=== PATIENT | female | born 1950 | race Caucasian/White ===

== ENCOUNTER 2017-10-11 07:50 | Emergency (ER) | payer MEDICARE, SELFPAY ==
[2017-10-11 07:52] VITALS: BP 143/110; PULSE 101; RESP 17; TEMP 36.7; O2SAT 97; BMI 32.3
[2017-10-11 08:15] LABS: Bacteria 0 SEEN /hpf (None Seen); Mucous, Urine 0 SEEN /hpf (<or=2+); Squamous Epithelial Cells - UA 0 SEEN /hpf (5-10); White Blood Cells 0 SEEN /hpf (0-5)
[2017-10-11 08:20] LABS: Color, Urine Red (Yellow); Glucose, Dipstick Normal (Normal); Ketone-Dipstick Negative (Negative); Leukocyte Esterase-Dipstick 100 /ul (Negative); Nitrite-Dipstick Negative (Negative); Occult Blood-Urine 250 /ul (Negative); Protein-Dipstick 100 mg/dl (Negative); Urine Bilirubin Dipstick Negative (Negative); Urine Clarity Cloudy (Clear); Urine Urobilinogen Normal (Normal); Urine pH 6.5 (5.0 - 8.0)
[2017-10-11 08:39] LABS: Red Blood Cells-Urine > 100 SEEN /hpf (0-5)
--- NOTE | 2017-10-11 08:46 | ED.VISSUMM ---
- ER Visit Summary Date of Service: 10/11/17 Chief Complaint: Blood in urine History of Present Illness: The patient is a [address] Mckinney and Dr. Mendoza. She is on Coumadin for chronic atrial fibrillation and mechanical mitral valve replacement. She reports that she began having hematuria yesterday. She denies any dysuria or frequency. She feels as though she is emptying her bladder well. She denies any abdominal or back pain. No fever or chills. Family does report that she has had minimal bleeding from her nose intermittently for the past couple of weeks. The most recent episode was this morning when she wiped her nose and there was a small amount of blood. No bleeding otherwise. Physical Examination: Vitals: Stable. Afebrile. General: Well-nourished and well-developed. Head: Normocephalic atraumatic. Nose: No active bleeding. Mild erosion to the anterior nasal septum bilaterally. Neck: Supple, no lymphadenopathy. No JVD. Nontender. Cardiovascular: Irregular rhythm with mechanical valve click. Respiratory: No respiratory distress. Clear to auscultation bilaterally. Abdominal: Soft, nontender, nondistended, normal bowel sounds. No guarding, rebound, or peritoneal signs. Back: Nontender. Extremities: Nontender, no edema. Skin: Normal color, no rash. Neurologic: Alert and oriented ?3. Cranial nerves II through XII are intact. Normal strength and sensation. Psych: Normal affect. Test Results: Urinalysis shows greater than 100 and blood cells. There is no evidence of infection. CBC is marked for an H&H 11.8 and 35.4, segmented neutrophils 72, lymphocytes 17. Chem-7 is more for glucose 154 and BUN of 24. INR 7.7. Emergency Department Course and Treatment: Patient is resting comfortably without complaint. She was given 10 mg of vitamin K p.o. Treatment Plan: The patient was discussed with Dr. Moraes. She is instructed to hold her Coumadin for the next 2 days and get her INR checked again. Her dosing will then be adjusted based on this result. Return to the emergency department for any worsening bleeding, trauma, or other concerns. Disposition: To home in improved and stable condition. Impression: 1. Supra therapeutic INR on Coumadin. 2. Mechanical heart valve. 3. Atrial fibrillation. 4. Hematuria. This note was generated with Dragon dictation software. It may contain incorrect words, spelling, and punctuation that were not noted in review of the chart prior to signing ED Disposition - Plan for ED Patient: Chief Complaint: Complaint Instructions: ED Hematuria Referrals: Musa Beckwith MD [Primary Care Provider] - 2 Days Additional Instructions: Have your Coumadin level checked again on Friday. Do not take your Coumadin again until contacted by Dr. Esquivel's office.
[2017-10-11 09:00] LABS: Absolute Lymphocyte Count 1.47 X10^3/ul (0.83-4.51); Absolute Neutrophil Count 6.1 X10^3/uL (2.0-7.7); Basophil# 0.01 X10^3/uL; Basophil% 0.1 % (0-1); Eosinophil# 0.06 X10^3/uL; Eosinophils% 0.7 % (0-5); Hematocrit 35.4 % (37-47); Hemoglobin 11.8 g/dl (12.0-15.0); Lymphocyte # 1.47 X10^3/ul (4.0); Lymphocyte % 17.3 % (19-41); Mean Corp Hgb Conc 33.3 g/gl (32-36); Mean Corpuscular Hgb 31.1 pg (27.0-32.0); Mean Corpuscular Volume 93.4 fL (81-99); Mean Platelet Vol. 11.7 fl (6.2-12.0); Monocyte# 0.82 X10^3/uL; Monocyte% 9.7 % (0-10); Neutrophil # 6.11 X10^3/uL (2.7-7.7); POSITIVE COUNT NO; POSITIVE DIFFERENTIAL NO; POSITIVE MORPHOLOGY NO; Platelet Count 207 K/mm3 (150-450); RBC Distribution Width CV 12.6 % (11.6-14.6); Red Blood Count 3.79 M/mm3 (4.2-5.4); White Blood Count 8.5 K/mm3 (4.4-11.0)
[2017-10-11 09:19] LABS: Prothrombin Time (Protime)PT. 65.8 SECONDS (11.7-14.9)
[2017-10-11 09:22] LABS: Anion Gap 5 (5-15); BUN 24 mg/dL (7-18); BUN/Creat Ratio 24.9 RATIO (10-20); Calcium,Total 8.9 mg/dL (8.5-10.1); Chloride 104 mmol/L (98-107); Creatinine, Serum 0.96 mg/dL (0.55-1.02); EST Glomerular Filtration Rate 62 mL/min (>60); Est Glom Filt Rate - Afr Amer 75 mL/min (>60); Estimated Creatinine Clearance 48.33 ml/min; Glucose 154 mg/dL (74-106); Potassium 3.8 mmol/L (3.5-5.1); Sodium Level 140 mmol/L (136-145)
[2017-10-11 09:31] LABS: International Normalized Ratio 7.7
--- NOTE | 2017-10-11 09:34 | ED.RN ---
PT 65.8 AND INR 7.[address] CALL[address] LAB. DR PAT AWARE
[2017-10-11 11:07] VITALS: BP 137/88; PULSE 87; RESP 16; O2SAT 97
== END 2017-10-11 11:09 | disposition home or self-care (01) ==
PROVIDERS: Emergency Provider Emergency Medicine; Family Provider Family Medicine; PCP Family Medicine
DX: R79.1 Abnormal coagulation profile (principal); I48.91 Unspecified atrial fibrillation; R31.9 Hematuria, unspecified; I10 Essential (primary) hypertension; F03.90 Unspecified dementia, unspecified severity, without behavioral disturbance, psychotic disturbance, mood disturbance, and anxiety; R05 Cough; Z79.01 Long term (current) use of anticoagulants; Z79.899 Other long term (current) drug therapy; Z95.2 Presence of prosthetic heart valve
CPT/HCPCS: 80048; 81001; 85025; 85610; 99285; A4216

== ENCOUNTER → 2018-10-26 09:30 | Outpatient (CLI) | payer MEDICARE, SELFPAY ==
[2018-10-05 10:22] VITALS: BMI 34.5
--- NOTE | 2018-10-26 09:33 | ECHOD_ITS ---
Version 2 Reason For Study: VAVLE REPL Procedure This was a 2D Doppler, Color Flow transthoracic echocardiogram. The study was technically difficult. Exam performed in department. Left Ventricle Normal LV size. Left ventricular systolic function is normal. The estimated ejection fraction is 55 %. No regional wall motion abnormalities noted. Right Ventricle Normal RV size. Normal systolic function. Atria The left atrium is severely enlarged. Normal right atrium. Mitral Valve Peak transmitral valve gradient 14 mmHg. Mean transmitral valve gradient 4 mmHg. Stable appearing mechanical mitral valve apparatus. Tricuspid Valve Normal tricuspid valve. Mild tricuspid valve insufficiency. Pulmonary artery systolic pressure is 34 mmHg. Aortic Valve Trisinus/trileaflet aortic valve. Peak aortic valve gradient 36 mmHg. Mean aortic valve gradient 21 mmHg. Mild to moderate aortic stenosis. Calculated aortic valve area (continuity equation) is 1.1 cm2. Mild (1+) eccentric aortic valve insufficiency. Pulmonic Valve Normal pulmonic valve. Great Vessels Normal aortic root. The pulmonary artery is normal size. Normal inferior vena cava. Pericardium/Pleural No pericardial effusion. MMode/2D Measurements & Calculations LVIDd: 4.5 cm IVSd: 1.1 cm LVOT diam: 2.2 cm LVIDs: 3.3 cm LVPWd: 1.1 cm LVOT area: 3.9 cm2 RVDd: 3.7 cm FS: 26.6 % Ao root diam: 3.0 cm LAV(MOD-bp): 110.6 ml Aortic Valve Planimetry: 1.2 cm2 LAV(MOD-bp) Indexed: 57.9 ml/m2 LAV(MOD-sp2): 115.6 ml LAV(MOD-sp4): 99.1 ml LA dimension(2D): 4.2 cm LA A4 area: 30.2 cm2 RA A4 area: 18.8 cm2 Time Measurements MV dec time: 0.21 sec Doppler Measurements & Calculations MV E max asuncion: 182.6 cm/sec MV V2 max: 189.0 cm/sec Ao V2 max: 301.7 cm/sec MV max P.3 mmHg Ao max P.8 mmHg MV V2 mean: 85.2 cm/sec Ao V2 mean: 218.2 cm/sec MV mean P.1 mmHg Ao mean P.1 mmHg MV V2 VTI: 35.4 cm Ao V2 VTI: 61.7 cm MVA(VTI): 1.9 cm2 AVERY(I,D): 1.1 cm2 AVERY(V,D): 1.0 cm2 AI max asuncion: 418.5 cm/sec LV V1 max: 80.4 cm/sec SV(LVOT): 66.3 ml AI max P.3 mmHg LV V1 max P.6 mmHg AI dec slope: 363.9 cm/sec2 LV V1 mean P.5 mmHg AI P1/2t: 336.9 msec LV V1 mean: 58.1 cm/sec LV V1 VTI: 16.8 cm PA V2 max: 95.1 cm/sec TR max asuncion: 265.6 cm/sec MV P1/2t-pr_phl: 82.8 msec TR max P.5 mmHg Interpretation Summary Normal LV size. Left ventricular systolic function is normal. The estimated ejection fraction is 55 %. Stable appearing mechanical mitral valve apparatus. Pulmonary artery systolic pressure is 34 mmHg. Mild to moderate aortic stenosis. Calculated aortic valve area (continuity equation) is 1.1 cm2. Compared to prior study, there is no significant change. Ordering Physician: Ashley Markham/Galindo Mendoza Referring Physician: BECKY ESTEVEZ Performed By: Alycia Coleman, RDCS, RVT
== END ==
PROVIDERS: Family Provider Family Medicine; PCP Family Medicine; Referring Provider Physician Assistant Medical; Visit Provider Physician Assistant Medical
DX: I48.1 Persistent atrial fibrillation (principal); Z95.2 Presence of prosthetic heart valve
CPT/HCPCS: 93306

== ENCOUNTER → 2020-06-06 | Outpatient (CLI) | payer MEDICARE, MEDICAID, SELFPAY ==
[2020-06-06 08:40] VITALS: BMI 33.7
[2020-06-06 10:17] LABS: International Normalized Ratio 1.7; Prothrombin Time (Protime)PT. 19.2 SECONDS (11.7-14.9)
== END | disposition home or self-care (01) ==
LOC: LABSPEC 09:53
PROVIDERS: PCP Family Medicine; Referring Provider Family Medicine; Visit Provider Family Medicine
DX: I48.20 Chronic atrial fibrillation, unspecified (principal)
CPT/HCPCS: 85610

== ENCOUNTER → 2020-06-15 | Outpatient (CLI) | payer MEDICARE, MEDICAID, SELFPAY ==
[2020-06-06 08:40] VITALS: BMI 33.7
[2020-06-15 11:18] LABS: International Normalized Ratio 2.3; Prothrombin Time (Protime)PT. 25.1 SECONDS (11.7-14.9)
== END | disposition home or self-care (01) ==
LOC: LABSPEC 10:20
PROVIDERS: PCP Family Medicine; Visit Provider Family Medicine
DX: I48.20 Chronic atrial fibrillation, unspecified (principal)
CPT/HCPCS: 85610

== ENCOUNTER 2021-01-13 14:08 | Emergency (ER) | payer MEDICARE, MEDICAID, SELFPAY ==
[2020-06-06 08:40] VITALS: BMI 33.7
[2021-01-13 14:09] VITALS: BP 140/96; PULSE 78; RESP 16; TEMP 36.6; O2SAT 100; BMI 37.3
[2021-01-13 15:13] LABS: Absolute Lymphocyte Count 1.15 X10^3/uL (0.83-4.51); Absolute Neutrophil Count 4.6 X10^3/uL (2.0-7.7); Basophil# 0.01 X10^3/uL; Basophil% 0.2 % (0-1); Eosinophil# 0.12 X10^3/uL; Eosinophils% 1.9 % (0-5); Hematocrit 35.8 % (37-47); Hemoglobin 11.5 g/dL (12.0-15.0); Lymphocyte # 1.15 X10^3/ul (0.83-4.51); Lymphocyte % 17.7 % (19-41); Mean Corp Hgb Conc 32.1 g/dL (32-36); Mean Corpuscular Hgb 30.1 pg (27.0-32.0); Mean Corpuscular Volume 93.7 fL (81-99); Mean Platelet Vol. 11.4 fl (6.2-12.0); Monocyte# 0.55 X10^3/uL; Monocyte% 8.5 % (0-10); NRBC Flagged by Analyzer 0 % (0-5); Neutrophil # 4.63 X10^3/uL (2.7-7.7); Neutrophil % 71.4 % (47-70); Platelet Count 180 K/mm3 (150-450); RBC Distribution Width CV 12.7 % (11.6-14.6); RBC Distribution Width SD 43.8 fl (35.1-43.9); Red Blood Count 3.82 M/mm3 (4.2-5.4); White Blood Count 6.5 K/mm3 (4.4-11.0)
[2021-01-13 15:22] LABS: International Normalized Ratio 2.3; Prothrombin Time (Protime)PT. 24.3 SECONDS (11.7-14.9)
[2021-01-13 15:27] LABS: Anion Gap 6 (5-15); BUN 20 mg/dL (7-18); BUN/Creat Ratio 21.8 RATIO (10-20); Calcium,Total 8.8 mg/dL (8.5-10.1); Chloride 101 mmol/L (98-107); Creatinine, Serum 0.92 mg/dL (0.55-1.02); EST Glomerular Filtration Rate 65 mL/min (>60); Est Glom Filt Rate - Afr Amer 78 mL/min (>60); Estimated Creatinine Clearance 44.16 ml/min; Glucose 185 mg/dL (74-106); Potassium 4.4 mmol/L (3.5-5.1); Sodium Level 137 mmol/L (136-145)
--- NOTE | 2021-01-13 16:41 | EX.ED.DYSGE1 ---
HPI History of Present Illness Chief Complaint: Nosebleed Narrative Narrative: Patient presents by EMS with nosebleed. Patient does have some dementia. She is really not able to give history. Her sister comes in. Evidently she was sitting on the toilet and straining and then had nosebleed. It has stopped now. She is on Coumadin because she has mechanical heart valve. She has not been sick recently. It seemed like compression help the nosebleed. Nothing specifically made it worse. She has not been sneezing or coughing. They do have air conditioning that they run occasionally. He does not think the medications have been taking inappropriately. [facility] Medical History (Updated 01/13/21 @ 16:[address] Jhoan Olivares MD) Dementia Essential (primary) hypertension History of rheumatic fever Hyperlipidemia Longstanding persistent atrial fibrillation Mitral valve stenosis, rheumatic Nonrheumatic aortic (valve) stenosis Obesity Shortness of breath Home Medications hydrochlorothiazide 25 mg PO DAILY 10/09/15 [History Last Taken 10/10/17] warfarin 2 mg PO MOWETHFRSA 10/09/15 [History Last Taken 10/10/17] warfarin 1 mg PO SUTU 10/11/17 [History Last Taken 10/10/17] lisinopril 20 mg tablet 20 mg PO QDAY #90 tab 03/12/18 [Rx Last Taken Unknown] metoprolol succinate 50 mg tablet,extended release 24 hr 50 mg PO DAILY #90 tab 08/03/18 [Rx Last Taken Unknown] furosemide 40 mg tablet 20 mg PO DAILY PRN tab 06/06/20 [History Last Taken Unknown] Allergy/AdvReac Type Severity Reaction Status Date / Time prednisone AdvReac Severe Facial Verified 01/13/21 14:13 edema Family History Father Myocardial infarction CVA (cerebral vascular accident) CAD (coronary artery disease) Mother CHF (congestive heart failure) Hx valve replacement Brother Aneurysm Brother Heart disease Brother Cancer Lung cancer Surgical History History of mitral valve replacement with mechanical valve (07/19/97) Social History Smoking Status: Never smoker alcohol intake: never substance use type: does not use caffeine: Yes Type: coffee what type of physical activity do you participate in: none seatbelt use: always do you feel safe at home: Yes ROS ROS ED Review of Systems ROS Unobtainable: other Details: Dementia limits. Constitutional Constitutional ED: Denies fever(s) ENT ENT ED: Reports other Details: See history of present illness. Cardiovascular Cardiovascular: Denies palpitations Respiratory/Chest Respiratory/Chest: Denies cough Gastrointestinal Gastrointestinal: Denies vomiting Integumentary Denies rash EXAM Physical Exam Const Vital Signs: 01/13/21 14:09 01/13/21 17:29 Temperature 97.8 F Temperature Source Temporal Pulse Rate 78 73 Respiratory Rate 16 16 Blood Pressure 140/96 H 138/79 H Blood Pressure Mean 110 Pulse Ox 100 97 Oxygen Delivery Method Room Air Positive well nourished and well developed General Appearance ED: well developed and NAD HEENT HEENT Narrative: Patient has nasal compression device on with no sign of bleeding. There is little crusting of blood at the front of both nares but mostly on her left. No pharyngeal bleeding. No abnormal bruising is seen generally. Negative for trauma or tenderness Eyes EOMs intact bilaterally Chest Wall inspection of chest normal Resp normal respiratory effort and clear to auscultation bilaterally Cardio regular rate Rate: other Other Details: Sounds consistent with mechanical heart valve. GI normal to inspection, nondistended, normoactive bowel sounds and non-tender Palpation: soft Neuro Sensorium / Orientation: alert Psych Psych Narrative: Acting normally per sister. MDM MDM MDM Narrative Medical decision making narrative: Before looking at the nose, I did do blood work as she is on Coumadin. Her CBC INR and electrolytes are showing no acute issues. Glucose is mildly elevated. At this point we did remove the clamp. There is no bleeding. She has some blood around both nares but it looks mostly on the left side where she had bleeding. I see no blood actually up into the right side. Still no pharyngeal blood. I think this patient is likely to pull out packing if I place it. She was pulling on the nasal compression device multiple times. I think this would hurt her more than help her. For that reason, I did use spray thrombin. I sprayed some in each nare. I then waited 20 minutes and I sprayed again. She still has no bleeding. No pharyngeal bleeding. Plan will be to get her home. I did discuss using something to moisturize the area that she is living in. If she has recurrent symptoms she may need to return. Lab Data Labs: Laboratory Results - last 24 hr 01/13/21 01/13/21 01/13/21 15:05 15:05 15:05 WBC 6.5 RBC 3.82 L Hgb 11.5 L Hct 35.8 L MCV 93.7 MCH 30.1 MCHC 32.1 RDW Std Deviation 43.8 RDW Coeff of Olga 12.7 Plt Count 180 MPV 11.4 Immature Gran % (Auto) 0.300 Neut % (Auto) 71.4 H Lymph % (Auto) 17.7 L Murray % (Auto) 8.5 Eos % (Auto) 1.9 Baso % (Auto) 0.2 Absolute Neuts (auto) 4.6 Absolute Lymphs (auto) 1.15 Nucleated RBC % 0 PT 24.3 H INR 2.3 Sodium 137 Potassium 4.4 Chloride 101 Carbon Dioxide 30.0 Anion Gap 6 BUN 20 H Creatinine 0.92 Estim Creat Clear Calc 44.16 Est GFR (MDRD) Af Amer 78 Est GFR (MDRD) Non-Af 65 BUN/Creatinine Ratio 21.8 H Glucose 185 H Calcium 8.8 Discharge Plan Triage Chief Complaint: Nosebleed ED Provider: Jhoan Olivares Dx/Rx/DC Orders Clinical Impression: Epistaxis Instructions: ED Epistaxis (Adult) Prescriptions: No Action furosemide [Lasix] 40 mg tablet 20 mg PO DAILY PRNRF: 0 warfarin 2 MG tablet 2 mg PO MOWETHFR RF: 0 hydrochlorothiazide 25 MG tablet 25 mg PO DAILY RF: 0 warfarin 1 MG tablet 1 mg PO SUTU RF: 0 lisinopril 20 mg tablet 20 mg PO QDAY Qty: 90 RF: 3 metoprolol succinate 50 mg tablet extended release 24 hr 50 mg PO DAILY Qty: 90 RF: 4 Primary Care Provider: Musa Beckwith Referrals: Carlos Fam MD [STAFF PHYSICIAN] - Musa Beckwith MD [Primary Care Provider] - Disposition Disposition: Home, Self Care Discharge Date/Time: 01/13/21 17:39
[2021-01-13 17:29] VITALS: BP 138/79; PULSE 73; RESP 16; O2SAT 97
== END 2021-01-13 17:39 | disposition home or self-care (01) ==
PROVIDERS: Emergency Provider Emergency Medicine; PCP Family Medicine
DX: R04.0 Epistaxis (principal); I10 Essential (primary) hypertension; F03.90 Unspecified dementia, unspecified severity, without behavioral disturbance, psychotic disturbance, mood disturbance, and anxiety; E78.5 Hyperlipidemia, unspecified; E66.9 Obesity, unspecified; Z68.37 Body mass index [BMI] 37.0-37.9, adult; Z95.2 Presence of prosthetic heart valve; Z79.52 Long term (current) use of systemic steroids; Z79.01 Long term (current) use of anticoagulants; Z79.899 Other long term (current) drug therapy
CPT/HCPCS: 36415; 80048; 85025; 85610; 99284

== ENCOUNTER 2021-01-17 00:12 | Emergency (ER) | payer MEDICARE, MEDICAID, SELFPAY ==
[2021-01-17 00:13] VITALS: BP 91/52; PULSE 96; RESP 18; TEMP 35.7; O2SAT 96; BMI 34.2
--- NOTE | 2021-01-17 00:41 | EX.ED.DYSGE1 ---
HPI History of Present Illness Chief Complaint: Nosebleed Informant: patient and family Narrative Narrative: Patient is a 70-year-old female who presents to the emergency department for nosebleed. This started around 9:30 PM this night. Patient does have a history of dementia and the history is provided by the family member. Patient is on Coumadin with a history of mechanical valve replacement. She was seen in the emergency department this past Friday for a nosebleed which resolved spontaneously. She was doing well until tonight. They were concerned because it was bleeding for 2 hours after putting ice and a clamp on it. On arrival to the ED the nosebleed has stopped. [facility] Medical History (Updated 01/17/21 @ 01:[address] Wero Farmer DO) Dementia Essential (primary) hypertension History of rheumatic fever Hyperlipidemia Longstanding persistent atrial fibrillation Mitral valve stenosis, rheumatic Nonrheumatic aortic (valve) stenosis Obesity Shortness of breath Home Medications hydrochlorothiazide 25 mg PO DAILY 10/09/15 [History Last Taken 10/10/17] warfarin 2 mg PO TU 10/09/15 [History Last Taken 10/10/17] warfarin 1 mg PO SUMOWETHFRSA 10/11/17 [History Last Taken 10/10/17] lisinopril 20 mg tablet 20 mg PO QDAY #90 tab 03/12/18 [Rx Last Taken Unknown] metoprolol succinate 50 mg tablet,extended release 24 hr 50 mg PO DAILY #90 tab 08/03/18 [Rx Last Taken Unknown] furosemide 40 mg tablet 20 mg PO DAILY PRN tab 06/06/20 [History Last Taken Unknown] lorazepam 0.25 - 0.5 mg PO BID PRN 01/17/21 [History Last Taken Unknown] Allergy/AdvReac Type Severity Reaction Status Date / Time prednisone AdvReac Severe Facial Verified 01/13/21 14:13 edema Family History Father Myocardial infarction CVA (cerebral vascular accident) CAD (coronary artery disease) Mother CHF (congestive heart failure) Hx valve replacement Brother Aneurysm Brother Heart disease Brother Cancer Lung cancer Surgical History History of mitral valve replacement with mechanical valve (07/19/97) Social History Smoking Status: Never smoker alcohol intake: never substance use type: does not use caffeine: Yes Type: coffee what type of physical activity do you participate in: none seatbelt use: always do you feel safe at home: Yes ROS ROS ED Constitutional Constitutional ED: Denies chills or fever(s) ENT ENT ED: Reports other Details: Epistaxis ; Denies rhinorrhea Cardiovascular Cardiovascular: Denies chest pain or palpitations Respiratory/Chest Respiratory/Chest: Denies cough or dyspnea Gastrointestinal Gastrointestinal: Denies abdominal pain, diarrhea, nausea or vomiting Integumentary Denies rash Neurologic Neurologic: Denies dizziness, headache(s) or weakness EXAM Physical Exam Const Vital Signs: 01/17/21 00:13 01/17/21 01:23 01/17/21 01:38 Temperature 96.2 F L Temperature Source Temporal Pulse Rate 96 78 73 Respiratory Rate 18 14 14 Blood Pressure 91/52 L 103/70 103/70 Blood Pressure Mean 65 81 Pulse Ox 96 95 96 Oxygen Delivery Method Room Air Room Air Positive well nourished and well developed General Appearance ED: well developed and NAD HEENT Reports normocephalic, head/scalp atraumatic and moist mucous membranes HEENT Narrative: Dried blood to external nares bilaterally. No active bleeding present. Normal nasal septum. No obvious source of bleeding. Eyes PERRL and EOMs intact bilaterally Neck supple Resp normal respiratory effort and clear to auscultation bilaterally Auscultation: Negative for rales, rhonchi or wheezes Cardio regular rate, regular rhythm and no murmurs GI normal to inspection, nondistended, normoactive bowel sounds and non-tender Palpation: soft; Negative for guarding or rebound tenderness present Extremity normal to inspection General Extremety ED: Negative for edema or tenderness General Extremity: Negative for edema Neuro no sensory deficits noted Sensorium / Orientation: alert Motor Exam: strength 5/5 throughout Skin no rashes or lesions noted MDM MDM MDM Narrative Medical decision making narrative: Patient presents to the emergency department for nosebleed. She otherwise does not have any complaints at this time. Bleeding is controlled upon arrival to the ED. She has benign physical exam. Will monitor here to make sure there is no signs of rebleeding. She just recently had her INR checked last ED visit and was therapeutic. Patient observed in the emergency department for multiple hours and did not have any repeat bleeding. This time no treatment is indicated. Do not see any obvious source of the bleeding to cauterize. I did make a referral for ENT since this is the second episode over the past few days. I did advise them on holding direct pressure for 15 to 20 minutes if she has rebleeding. If they cannot get this to stop the need to come back to the emergency department. Her initial blood pressure on arrival was low but this was rechecked and turned to normal. She is asymptomatic with this. I have low concern for acute blood loss anemia. This was all discussed with the family. They understand and are agreeable to plan. Discharged home in stable condition. All questions were answered. Discharge Plan Triage Chief Complaint: Nosebleed ED Provider: Wero Farmer Dx/Rx/DC Orders Clinical Impression: Epistaxis Instructions: ED Epistaxis (Adult) Prescriptions: No Action furosemide [Lasix] 40 mg tablet 20 mg PO DAILY PRN (Reason: Edema) RF: 0 warfarin 2 MG tablet 2 mg PO TU RF: 0 hydrochlorothiazide 25 MG tablet 25 mg PO DAILY RF: 0 warfarin 1 MG tablet 1 mg PO SUMOWETHFRSA RF: 0 lorazepam 0.5 mg Tablet 0.25 - 0.5 mg PO BID PRN (Reason: Anxiety) RF: 0 lisinopril 20 mg tablet 20 mg PO QDAY Qty: 90 RF: 3 metoprolol succinate 50 mg tablet extended release 24 hr 50 mg PO DAILY Qty: 90 RF: 4 Primary Care Provider: Musa Beckwith Referrals: Gabino Richard MD [STAFF PHYSICIAN] - 3-5 Days Musa Beckwith MD [Primary Care Provider] - Disposition Disposition: Home, Self Care Discharge Date/Time: 01/17/21 02:29
[2021-01-17 01:23] VITALS: BP 103/70; PULSE 78; RESP 14; O2SAT 95
[2021-01-17 01:38] VITALS: BP 103/70; PULSE 73; RESP 14; O2SAT 96
== END 2021-01-17 02:29 | disposition home or self-care (01) ==
PROVIDERS: Emergency Provider Emergency Medicine; PCP Family Medicine
DX: R04.0 Epistaxis (principal); I10 Essential (primary) hypertension; I48.11 Longstanding persistent atrial fibrillation; F03.90 Unspecified dementia, unspecified severity, without behavioral disturbance, psychotic disturbance, mood disturbance, and anxiety; E78.5 Hyperlipidemia, unspecified; E66.9 Obesity, unspecified; Z68.34 Body mass index [BMI] 34.0-34.9, adult; Z95.2 Presence of prosthetic heart valve; Z79.01 Long term (current) use of anticoagulants; Z79.899 Other long term (current) drug therapy
CPT/HCPCS: 99283

== ENCOUNTER → 2021-06-12 09:08 | Outpatient (CLI) | payer MEDICARE, MEDICAID, SELFPAY ==
[2021-06-12 11:17] LABS: INR Fingerstick 2.4; Prothrombin Time Fingerstick 27.1 SEC (11.9-14.4)
== END ==
PROVIDERS: PCP Family Medicine; Visit Provider Internal Medicine Cardiovascular Disease
DX: I05.0 Rheumatic mitral stenosis (principal); I35.0 Nonrheumatic aortic (valve) stenosis; I48.11 Longstanding persistent atrial fibrillation; Z95.2 Presence of prosthetic heart valve
CPT/HCPCS: 36416; 85610

== ENCOUNTER 2021-07-04 08:20 | Outpatient (CLI) | payer MEDICARE, MEDICAID, SELFPAY ==
[2021-07-04 10:25] LABS: INR Fingerstick 2.1; Prothrombin Time Fingerstick 24.6 SEC (11.9-14.4)
== END 2021-07-04 23:59 | disposition short-term general hospital (02) ==
LOC: LAB 08:21
PROVIDERS: PCP Family Medicine; Visit Provider Internal Medicine Cardiovascular Disease
DX: I05.0 Rheumatic mitral stenosis (principal); I48.11 Longstanding persistent atrial fibrillation; I35.0 Nonrheumatic aortic (valve) stenosis; Z95.2 Presence of prosthetic heart valve
CPT/HCPCS: 36416; 85610

== ENCOUNTER 2021-07-18 04:24 | Outpatient (CLI) | payer MEDICARE, MEDICAID, SELFPAY ==
[2021-07-18 10:21] LABS: INR Fingerstick 2.1; Prothrombin Time Fingerstick 24.7 SEC (11.9-14.4)
== END 2021-07-18 23:59 | disposition short-term general hospital (02) ==
LOC: LAB 04:26
PROVIDERS: PCP Family Medicine; Visit Provider Internal Medicine Cardiovascular Disease
DX: I05.0 Rheumatic mitral stenosis (principal); F03.90 Unspecified dementia, unspecified severity, without behavioral disturbance, psychotic disturbance, mood disturbance, and anxiety; I48.19 Other persistent atrial fibrillation; I35.0 Nonrheumatic aortic (valve) stenosis; Z95.2 Presence of prosthetic heart valve
CPT/HCPCS: 36416; 85610

== ENCOUNTER 2021-07-25 09:14 | Outpatient (CLI) | payer MEDICARE, MEDICAID, SELFPAY ==
[2021-07-25 11:51] LABS: INR Fingerstick 2.2; Prothrombin Time Fingerstick 25.3 SEC (11.9-14.4)
== END 2021-07-25 23:59 | disposition short-term general hospital (02) ==
LOC: LAB 09:15
PROVIDERS: PCP Family Medicine; Referring Provider Internal Medicine Cardiovascular Disease; Visit Provider Internal Medicine Cardiovascular Disease
DX: I05.0 Rheumatic mitral stenosis (principal); I48.11 Longstanding persistent atrial fibrillation; I35.0 Nonrheumatic aortic (valve) stenosis; Z95.2 Presence of prosthetic heart valve
CPT/HCPCS: 36416; 85610

== ENCOUNTER 2021-08-01 09:03 | Outpatient (CLI) | payer MEDICARE, MEDICAID, SELFPAY | END 2021-08-01 23:59 | disposition home or self-care (01) | LOC: LAB 09:04 | PROVIDERS: PCP Family Medicine; Visit Provider Internal Medicine Cardiovascular Disease | DX: I05.0 Rheumatic mitral stenosis (principal); F03.90 Unspecified dementia, unspecified severity, without behavioral disturbance, psychotic disturbance, mood disturbance, and anxiety; I48.11 Longstanding persistent atrial fibrillation; I35.0 Nonrheumatic aortic (valve) stenosis; Z95.2 Presence of prosthetic heart valve | CPT/HCPCS: 36416; 85610 ==

== ENCOUNTER 2021-08-16 08:38 | Outpatient (CLI) | payer MEDICARE, MEDICAID, SELFPAY ==
[2021-08-16 11:11] LABS: INR Fingerstick 3.3; Prothrombin Time Fingerstick 37.5 SEC (11.9-14.4)
== END 2021-08-16 23:59 | disposition home or self-care (01) ==
LOC: LAB 08:42
PROVIDERS: PCP Family Medicine; Referring Provider Internal Medicine Cardiovascular Disease; Visit Provider Internal Medicine Cardiovascular Disease
DX: I05.0 Rheumatic mitral stenosis (principal); F03.90 Unspecified dementia, unspecified severity, without behavioral disturbance, psychotic disturbance, mood disturbance, and anxiety; I48.11 Longstanding persistent atrial fibrillation; I35.0 Nonrheumatic aortic (valve) stenosis; Z95.2 Presence of prosthetic heart valve
CPT/HCPCS: 36416; 85610

== ENCOUNTER 2021-09-13 03:37 | Outpatient (CLI) | payer MEDICARE, MEDICAID, SELFPAY ==
[2021-09-13 11:00] LABS: INR Fingerstick 2.5; Prothrombin Time Fingerstick 29.4 SEC (11.7-14.9)
== END 2021-09-13 23:59 | disposition home or self-care (01) ==
LOC: LAB 03:38
PROVIDERS: PCP Family Medicine; Referring Provider Internal Medicine Cardiovascular Disease; Visit Provider Internal Medicine Cardiovascular Disease
DX: I08.0 Rheumatic disorders of both mitral and aortic valves (principal); I48.11 Longstanding persistent atrial fibrillation; Z95.2 Presence of prosthetic heart valve
CPT/HCPCS: 36416; 85610

== ENCOUNTER → 2021-10-11 | Outpatient (CLI) | payer MEDICARE, MEDICAID, SELFPAY ==
[2021-10-11 11:25] LABS: INR Fingerstick 2.7; Prothrombin Time Fingerstick 30.9 SEC (11.7-14.9)
== END | disposition home or self-care (01) ==
LOC: OLS.DEFALT 09:35 → LAB 09:38
PROVIDERS: PCP Family Medicine; Referring Provider Internal Medicine Cardiovascular Disease; Visit Provider Internal Medicine Cardiovascular Disease
DX: I05.2 Rheumatic mitral stenosis with insufficiency (principal); I48.11 Longstanding persistent atrial fibrillation; I35.0 Nonrheumatic aortic (valve) stenosis; Z95.2 Presence of prosthetic heart valve
CPT/HCPCS: 36416; 85610

== ENCOUNTER → 2021-11-07 | Outpatient (CLI) | payer MEDICARE, MEDICAID, SELFPAY ==
[2021-11-07 14:00] LABS: INR Fingerstick 2.7; Prothrombin Time Fingerstick 31.5 SEC (11.7-14.9)
== END | disposition home or self-care (01) ==
LOC: LAB 08:26
PROVIDERS: PCP Family Medicine; Referring Provider Internal Medicine Cardiovascular Disease; Visit Provider Internal Medicine Cardiovascular Disease
DX: I05.0 Rheumatic mitral stenosis (principal); I48.11 Longstanding persistent atrial fibrillation; I35.0 Nonrheumatic aortic (valve) stenosis; Z95.2 Presence of prosthetic heart valve
CPT/HCPCS: 36416; 85610

== ENCOUNTER → 2021-11-27 | Outpatient (CLI) | payer MEDICARE, MEDICAID, SELFPAY ==
[2021-11-27 11:16] LABS: INR Fingerstick 2.2; Prothrombin Time Fingerstick 25.5 SEC (11.7-14.9)
== END | disposition home or self-care (01) ==
LOC: LAB 08:48
PROVIDERS: PCP Family Medicine; Visit Provider Internal Medicine Cardiovascular Disease
DX: I05.0 Rheumatic mitral stenosis (principal); I48.11 Longstanding persistent atrial fibrillation; I35.0 Nonrheumatic aortic (valve) stenosis; Z95.2 Presence of prosthetic heart valve
CPT/HCPCS: 36416; 85610

== ENCOUNTER → 2021-11-30 | Outpatient (CLI) | payer MEDICARE, MEDICAID, SELFPAY ==
[2021-11-30 10:06] LABS: INR Fingerstick 3.5
== END | disposition home or self-care (01) ==
LOC: LAB 08:16
PROVIDERS: PCP Family Medicine; Referring Provider Family Medicine; Visit Provider Family Medicine
DX: I05.0 Rheumatic mitral stenosis (principal); F03.90 Unspecified dementia, unspecified severity, without behavioral disturbance, psychotic disturbance, mood disturbance, and anxiety; I48.11 Longstanding persistent atrial fibrillation; I35.0 Nonrheumatic aortic (valve) stenosis; Z95.2 Presence of prosthetic heart valve
CPT/HCPCS: 36416; 85610

== ENCOUNTER → 2021-12-10 | Outpatient (CLI) | payer MEDICARE, MEDICAID, SELFPAY ==
[2021-12-10 11:20] LABS: INR Fingerstick 3.1; Prothrombin Time Fingerstick 35.3 SEC (11.7-14.9)
== END | disposition home or self-care (01) ==
LOC: LAB 09:14
PROVIDERS: PCP Family Medicine; Visit Provider Internal Medicine Cardiovascular Disease
DX: I05.0 Rheumatic mitral stenosis (principal); I48.11 Longstanding persistent atrial fibrillation; I35.0 Nonrheumatic aortic (valve) stenosis; Z95.2 Presence of prosthetic heart valve
CPT/HCPCS: 36416; 85610

== ENCOUNTER → 2021-12-19 | Outpatient (CLI) | payer MEDICARE, MEDICAID, SELFPAY ==
[2021-12-19 16:04] LABS: Absolute Lymphocyte Count 1.42 X10^3/uL (0.83-4.51); Absolute Neutrophil Count 4.4 X10^3/uL (2.0-7.7); Basophil# 0.02 X10^3/uL; Basophil% 0.3 % (0-1); Eosinophil# 0.08 X10^3/uL; Eosinophils% 1.2 % (0-5); Hematocrit 37.6 % (37-47); Hemoglobin 12.2 g/dL (12.0-15.0); Lymphocyte # 1.42 X10^3/ul (0.83-4.51); Lymphocyte % 22.1 % (19-41); Mean Corp Hgb Conc 32.4 g/dL (32-36); Mean Corpuscular Hgb 30.3 pg (27.0-32.0); Mean Corpuscular Volume 93.3 fL (81-99); Mean Platelet Vol. 12.2 fl (6.2-12.0); Monocyte% 7.8 % (0-10); NRBC Flagged by Analyzer 0 % (0-5); Neutrophil % 68.4 % (47-70); Platelet Count 218 K/mm3 (150-450); RBC Distribution Width CV 12.5 % (11.6-14.6); RBC Distribution Width SD 42.8 fl (35.1-43.9); Red Blood Count 4.03 M/mm3 (4.2-5.4); White Blood Count 6.4 K/mm3 (4.4-11.0)
[2021-12-19 16:31] LABS: ALB/GLOB Ratio 0.9 RATIO (0.9-2.4); AST(SGOT) 33 U/L (15-37); Alanine Aminotransfer ALT/SGPT 34 U/L (13-56); Albumin, Serum 3.4 g/dL (3.2-5.0); Alkaline Phosphatase 90 U/L (45-117); Anion Gap 7 (5-15); BUN 20 mg/dL (7-18); BUN/Creat Ratio 18.2 RATIO (10-20); Calcium,Total 9.2 mg/dL (8.5-10.1); Chloride 103 mmol/L (98-107); EST Glomerular Filtration Rate 52 mL/min (>60); Est Glom Filt Rate - Afr Amer 63 mL/min (>60); Globulin 3.8 g/dL (2.2-4.2); Glucose 148 mg/dL (74-106); Potassium 3.8 mmol/L (3.5-5.1); Protein, Total 7.2 g/dL (6.4-8.2); Sodium Level 138 mmol/L (136-145)
== END | disposition home or self-care (01) ==
LOC: LAB 13:59
PROVIDERS: PCP Family Medicine; Referring Provider Physician Assistant Medical; Visit Provider Physician Assistant Medical
DX: I48.11 Longstanding persistent atrial fibrillation (principal); F03.90 Unspecified dementia, unspecified severity, without behavioral disturbance, psychotic disturbance, mood disturbance, and anxiety; I10 Essential (primary) hypertension; Z95.2 Presence of prosthetic heart valve
CPT/HCPCS: 36415; 80053; 85025

== ENCOUNTER → 2022-01-07 | Outpatient (CLI) | payer MEDICARE, MEDICAID, SELFPAY ==
[2022-01-07 11:10] LABS: INR Fingerstick 2.4; Prothrombin Time Fingerstick 27.9 SEC (11.7-14.9)
== END | disposition home or self-care (01) ==
LOC: LAB 09:44
PROVIDERS: PCP Family Medicine; Visit Provider Internal Medicine Cardiovascular Disease
DX: I05.0 Rheumatic mitral stenosis (principal); F03.90 Unspecified dementia, unspecified severity, without behavioral disturbance, psychotic disturbance, mood disturbance, and anxiety; I48.11 Longstanding persistent atrial fibrillation; I35.0 Nonrheumatic aortic (valve) stenosis; Z95.2 Presence of prosthetic heart valve
CPT/HCPCS: 36416; 85610

== ENCOUNTER → 2022-01-16 | Outpatient (CLI) | payer MEDICARE, MEDICAID, SELFPAY ==
[2022-01-16 11:25] LABS: International Normalized Ratio 2.3; Prothrombin Time (Protime)PT. 25.3 SECONDS (11.7-14.9)
[2022-01-16 11:44] LABS: ALB/GLOB Ratio 0.9 RATIO (0.9-2.4); AST(SGOT) 34 U/L (15-37); Alanine Aminotransfer ALT/SGPT 29 U/L (13-56); Albumin, Serum 3.3 g/dL (3.2-5.0); Alkaline Phosphatase 90 U/L (45-117); Anion Gap 3 (5-15); BUN 25 mg/dL (7-18); BUN/Creat Ratio 25.6 RATIO (10-20); Calcium,Total 9.3 mg/dL (8.5-10.1); Chloride 104 mmol/L (98-107); Cholesterol 246 mg/dL (200); Creatinine, Serum 0.98 mg/dL (0.55-1.02); EST Glomerular Filtration Rate 60 mL/min (>60); Est Glom Filt Rate - Afr Amer 72 mL/min (>60); Globulin 3.8 g/dL (2.2-4.2); Glucose 110 mg/dL (74-106); High Density Lipoprotein 60 mg/dL; Protein, Total 7.1 g/dL (6.4-8.2); Sodium Level 139 mmol/L (136-145); Triglycerides 110 mg/dL; Very Low Density Lipoprotein 22 mg/dL (5-40)
[2022-01-16 11:46] LABS: Hemoglobin A1c 6.2 % (3.8-5.6)
== END | disposition home or self-care (01) ==
LOC: LAB 10:49
PROVIDERS: Internal Medicine Cardiovascular Disease; PCP Family Medicine; Visit Provider Family Medicine
DX: E78.5 Hyperlipidemia, unspecified (principal); F03.90 Unspecified dementia, unspecified severity, without behavioral disturbance, psychotic disturbance, mood disturbance, and anxiety; I48.11 Longstanding persistent atrial fibrillation; R73.01 Impaired fasting glucose; I05.0 Rheumatic mitral stenosis; I35.0 Nonrheumatic aortic (valve) stenosis; Z95.2 Presence of prosthetic heart valve
CPT/HCPCS: 36415; 80053; 80061; 83036; 85610

== ENCOUNTER → 2022-01-16 | Outpatient (CLI) | payer MEDICARE, MEDICAID, SELFPAY ==
--- NOTE | 2022-01-16 09:53 | ECHOD_ITS ---
Reason For Study: MURMUR Procedure This was a 2D Doppler, Color Flow transthoracic echocardiogram. The study was technically difficult. Limited views were obtained. Definity refused by patient. Exam performed in department. Left Ventricle Normal LV size. Left ventricular systolic function is normal. The estimated ejection fraction is 55 %. No regional wall motion abnormalities noted. Right Ventricle Normal RV size. Normal systolic function. Atria Normal left atrium. Normal right atrium. Mitral Valve Stable appearing mechanical mitral valve apparatus. Tricuspid Valve Normal tricuspid valve. Aortic Valve The aortic valve is not well visualized. Peak aortic valve gradient 54 mmHg. Mean aortic valve gradient 35 mmHg. Moderate aortic stenosis. Trivial aortic valve insufficiency. Pulmonic Valve The pulmonic valve is not well visualized. Great Vessels Normal aortic root. The pulmonary is not well visualized. Normal inferior vena cava. Pericardium/Pleural No pericardial effusion. Doppler Measurements & Calculations MV E max asuncion: 155.1 cm/sec Ao V2 max: 367.7 cm/sec LV V1 max: 62.1 cm/sec Ao max P.5 mmHg LV V1 max P.6 mmHg Ao V2 mean: 282.1 cm/sec LV V1 mean P.75 mmHg Ao mean P.8 mmHg LV V1 mean: 40.8 cm/sec Ao V2 VTI: 84.0 cm LV V1 VTI: 13.2 cm PA V2 max: 72.1 cm/sec ECHO/Echo Complete Interpretation Summary Normal LV size. Left ventricular systolic function is normal. No regional wall motion abnormalities noted. The estimated ejection fraction is 55 %. Mean aortic valve gradient 35 mmHg. Moderate aortic stenosis. Ordering Physician: Ashley Markham Referring Physician: Ashley Markham Performed By: Antoinette Hernandes RCS
== END | disposition home or self-care (01) ==
LOC: CVS 09:52
PROVIDERS: PCP Family Medicine; Referring Provider Physician Assistant Medical; Visit Provider Physician Assistant Medical
DX: I05.0 Rheumatic mitral stenosis (principal); F03.90 Unspecified dementia, unspecified severity, without behavioral disturbance, psychotic disturbance, mood disturbance, and anxiety; I48.11 Longstanding persistent atrial fibrillation; R01.1 Cardiac murmur, unspecified; E78.5 Hyperlipidemia, unspecified; I35.0 Nonrheumatic aortic (valve) stenosis; R73.01 Impaired fasting glucose; Z95.2 Presence of prosthetic heart valve
CPT/HCPCS: 36415; 80053; 80061; 83036; 85610; 93306

== ENCOUNTER → 2022-02-06 | Outpatient (CLI) | payer MEDICARE, MEDICAID, SELFPAY ==
[2022-02-06 10:31] LABS: INR Fingerstick 3.2; Prothrombin Time Fingerstick 36.3 SEC (11.7-14.9)
== END | disposition home or self-care (01) ==
LOC: LAB 08:29
PROVIDERS: PCP Family Medicine; Referring Provider Internal Medicine Cardiovascular Disease; Visit Provider Internal Medicine Cardiovascular Disease
DX: I05.0 Rheumatic mitral stenosis (principal); F03.90 Unspecified dementia, unspecified severity, without behavioral disturbance, psychotic disturbance, mood disturbance, and anxiety; I48.11 Longstanding persistent atrial fibrillation; I35.0 Nonrheumatic aortic (valve) stenosis; Z95.2 Presence of prosthetic heart valve
CPT/HCPCS: 36416; 85610

== ENCOUNTER → 2022-02-19 | Outpatient (CLI) | payer MEDICARE, MEDICAID, SELFPAY ==
[2022-02-19 10:46] LABS: INR Fingerstick 4.8; Prothrombin Time Fingerstick 52.3 SEC (11.7-14.9)
[2022-02-19 11:02] LABS: Prothrombin Time (Protime)PT. 47.5 SECONDS (11.7-14.9)
[2022-02-19 11:18] LABS: International Normalized Ratio 5.2
== END | disposition home or self-care (01) ==
LOC: LAB 08:55
PROVIDERS: PCP Family Medicine; Visit Provider Internal Medicine Cardiovascular Disease
DX: I35.0 Nonrheumatic aortic (valve) stenosis (principal); I48.11 Longstanding persistent atrial fibrillation; Z95.2 Presence of prosthetic heart valve; I05.0 Rheumatic mitral stenosis
CPT/HCPCS: 36415; 36416; 85610

== ENCOUNTER → 2022-02-22 | Outpatient (CLI) | payer MEDICARE, MEDICAID, SELFPAY ==
[2022-02-22 10:30] LABS: INR Fingerstick 2.7; Prothrombin Time Fingerstick 31.6 SEC (11.7-14.9)
== END | disposition home or self-care (01) ==
LOC: LAB 09:17
PROVIDERS: PCP Family Medicine; Visit Provider Internal Medicine Cardiovascular Disease
DX: I05.0 Rheumatic mitral stenosis (principal); I48.11 Longstanding persistent atrial fibrillation; Z95.2 Presence of prosthetic heart valve; I35.0 Nonrheumatic aortic (valve) stenosis
CPT/HCPCS: 36416; 85610

== ENCOUNTER → 2022-03-06 | Outpatient (CLI) | payer MEDICARE, MEDICAID, SELFPAY ==
[2022-03-06 11:05] LABS: INR Fingerstick 3.4; Prothrombin Time Fingerstick 37.9 SEC (11.7-14.9)
== END | disposition home or self-care (01) ==
LOC: LAB 08:36
PROVIDERS: PCP Family Medicine; Referring Provider Internal Medicine Cardiovascular Disease; Visit Provider Internal Medicine Cardiovascular Disease
DX: I05.0 Rheumatic mitral stenosis (principal); I48.11 Longstanding persistent atrial fibrillation; I35.0 Nonrheumatic aortic (valve) stenosis; Z95.2 Presence of prosthetic heart valve
CPT/HCPCS: 36416; 85610

== ENCOUNTER → 2022-03-20 | Outpatient (CLI) | payer MEDICARE, MEDICAID, SELFPAY ==
[2022-03-20 10:30] LABS: INR Fingerstick 3.5; Prothrombin Time Fingerstick 39.8 SEC (11.7-14.9)
== END | disposition home or self-care (01) ==
LOC: LAB 08:25
PROVIDERS: PCP Family Medicine; Referring Provider Internal Medicine Cardiovascular Disease; Visit Provider Internal Medicine Cardiovascular Disease
DX: I05.0 Rheumatic mitral stenosis (principal); I48.11 Longstanding persistent atrial fibrillation; I35.0 Nonrheumatic aortic (valve) stenosis; Z95.2 Presence of prosthetic heart valve
CPT/HCPCS: 36416; 85610

== ENCOUNTER → 2022-04-04 | Outpatient (CLI) | payer MEDICARE, MEDICAID, SELFPAY ==
[2022-04-04 10:41] LABS: INR Fingerstick 3.1; Prothrombin Time Fingerstick 35.5 SEC (11.7-14.9)
== END | disposition home or self-care (01) ==
LOC: LAB 08:24
PROVIDERS: PCP Family Medicine; Referring Provider Internal Medicine Cardiovascular Disease; Visit Provider Internal Medicine Cardiovascular Disease
DX: I05.0 Rheumatic mitral stenosis (principal); I48.11 Longstanding persistent atrial fibrillation; I35.0 Nonrheumatic aortic (valve) stenosis; Z95.2 Presence of prosthetic heart valve
CPT/HCPCS: 36416; 85610

== ENCOUNTER → 2022-04-22 | Outpatient (CLI) | payer MEDICARE, MEDICAID, SELFPAY ==
[2022-04-22 10:55] LABS: INR Fingerstick 3.4; Prothrombin Time Fingerstick 38.7 SEC (11.7-14.9)
== END | disposition home or self-care (01) ==
LOC: LAB 09:25
PROVIDERS: PCP Family Medicine; Visit Provider Internal Medicine Cardiovascular Disease
DX: I05.0 Rheumatic mitral stenosis (principal); F03.90 Unspecified dementia, unspecified severity, without behavioral disturbance, psychotic disturbance, mood disturbance, and anxiety; I48.11 Longstanding persistent atrial fibrillation; I35.0 Nonrheumatic aortic (valve) stenosis; Z95.2 Presence of prosthetic heart valve
CPT/HCPCS: 36416; 85610

== ENCOUNTER → 2022-05-06 | Outpatient (CLI) | payer MEDICARE, MEDICAID, SELFPAY ==
[2022-05-06 11:01] LABS: INR Fingerstick 4.1
[2022-05-06 11:21] LABS: International Normalized Ratio 3.7; Prothrombin Time (Protime)PT. 36.6 SECONDS (11.7-14.9)
== END | disposition home or self-care (01) ==
LOC: LAB 09:08
PROVIDERS: PCP Family Medicine; Referring Provider Internal Medicine Cardiovascular Disease; Visit Provider Internal Medicine Cardiovascular Disease
DX: I05.0 Rheumatic mitral stenosis (principal); I48.11 Longstanding persistent atrial fibrillation; I35.0 Nonrheumatic aortic (valve) stenosis; Z95.2 Presence of prosthetic heart valve
CPT/HCPCS: 36416; 85610

== ENCOUNTER → 2022-05-13 | Outpatient (CLI) | payer MEDICARE, MEDICAID, SELFPAY ==
[2022-05-13 11:08] LABS: Prothrombin Time Fingerstick 44.8 SEC (11.7-14.9)
[2022-05-13 11:30] LABS: International Normalized Ratio 3.7
== END | disposition home or self-care (01) ==
LOC: LAB 08:24
PROVIDERS: PCP Family Medicine; Visit Provider Internal Medicine Cardiovascular Disease
DX: I05.0 Rheumatic mitral stenosis (principal); I48.11 Longstanding persistent atrial fibrillation; I35.0 Nonrheumatic aortic (valve) stenosis; Z95.2 Presence of prosthetic heart valve
CPT/HCPCS: 36416; 85610

== ENCOUNTER → 2022-05-20 | Outpatient (CLI) | payer MEDICARE, MEDICAID, SELFPAY ==
[2022-05-20 10:25] LABS: INR Fingerstick 3.8; Prothrombin Time Fingerstick 42.4 SEC (11.7-14.9)
== END | disposition home or self-care (01) ==
LOC: LAB 08:52
PROVIDERS: PCP Family Medicine; Visit Provider Internal Medicine Cardiovascular Disease
DX: I48.11 Longstanding persistent atrial fibrillation (principal); Z79.01 Long term (current) use of anticoagulants; Z95.2 Presence of prosthetic heart valve
CPT/HCPCS: 36416; 85610

== ENCOUNTER → 2022-05-27 | Outpatient (CLI) | payer MEDICARE, MEDICAID, SELFPAY ==
[2022-05-27 11:30] LABS: INR Fingerstick 3.3; Prothrombin Time Fingerstick 37.7 SEC (11.7-14.9)
== END | disposition home or self-care (01) ==
LOC: LAB 09:33
PROVIDERS: PCP Family Medicine; Visit Provider Internal Medicine Cardiovascular Disease
DX: I48.11 Longstanding persistent atrial fibrillation (principal); Z95.2 Presence of prosthetic heart valve; Z79.01 Long term (current) use of anticoagulants
CPT/HCPCS: 36416; 85610

== ENCOUNTER → 2022-06-03 | Outpatient (CLI) | payer MEDICARE, MEDICAID, SELFPAY ==
[2022-06-03 11:11] LABS: INR Fingerstick 2.8; Prothrombin Time Fingerstick 32.4 SEC (11.7-14.9)
== END | disposition home or self-care (01) ==
LOC: LAB 09:46
PROVIDERS: PCP Family Medicine; Referring Provider Internal Medicine Cardiovascular Disease; Visit Provider Internal Medicine Cardiovascular Disease
DX: I48.11 Longstanding persistent atrial fibrillation (principal); Z95.2 Presence of prosthetic heart valve; Z79.01 Long term (current) use of anticoagulants
CPT/HCPCS: 36416; 85610

== ENCOUNTER → 2022-06-10 | Outpatient (CLI) | payer MEDICARE, MEDICAID, SELFPAY ==
[2022-06-10 12:00] LABS: Prothrombin Time Fingerstick 33.7 SEC (11.7-14.9)
== END | disposition home or self-care (01) ==
LOC: LAB 07:52
PROVIDERS: PCP Family Medicine; Visit Provider Internal Medicine Cardiovascular Disease
DX: Z95.2 Presence of prosthetic heart valve (principal); I48.11 Longstanding persistent atrial fibrillation; Z79.01 Long term (current) use of anticoagulants
CPT/HCPCS: 36416; 85610

== ENCOUNTER → 2022-06-25 | Outpatient (CLI) | payer MEDICARE, MEDICAID, SELFPAY ==
[2022-06-25 11:50] LABS: INR Fingerstick 2.4; Prothrombin Time Fingerstick 28.2 SEC (11.7-14.9)
== END | disposition home or self-care (01) ==
LOC: LAB 09:20
PROVIDERS: PCP Family Medicine; Referring Provider Internal Medicine Cardiovascular Disease; Visit Provider Internal Medicine Cardiovascular Disease
DX: I48.11 Longstanding persistent atrial fibrillation (principal); Z79.01 Long term (current) use of anticoagulants; Z95.2 Presence of prosthetic heart valve
CPT/HCPCS: 36416; 85610

== ENCOUNTER → 2022-07-03 | Outpatient (CLI) | payer MEDICARE, MEDICAID, SELFPAY ==
[2022-07-03 10:56] LABS: Hematocrit 34.5 % (37-47); Hemoglobin 11.5 g/dL (12.0-15.0); Mean Corp Hgb Conc 33.3 g/dL (32-36); Mean Corpuscular Hgb 30.8 pg (27.0-32.0); Mean Corpuscular Volume 92.5 fL (81-99); Mean Platelet Vol. 11.6 fl (6.2-12.0); Platelet Count 174 K/mm3 (150-450); RBC Distribution Width SD 43.8 fl (35.1-43.9); Red Blood Count 3.73 M/mm3 (4.2-5.4); White Blood Count 5.3 K/mm3 (4.4-11.0)
[2022-07-03 11:15] LABS: International Normalized Ratio 2.5; Prothrombin Time (Protime)PT. 26.2 SECONDS (11.7-14.9)
[2022-07-03 11:22] LABS: ALB/GLOB Ratio 0.9 RATIO (0.9-2.4); AST(SGOT) 36 U/L (15-37); Alanine Aminotransfer ALT/SGPT 33 U/L (13-56); Albumin, Serum 3.1 g/dL (3.2-5.0); Alkaline Phosphatase 90 U/L (45-117); Anion Gap 5 (5-15); BUN 22 mg/dL (7-18); BUN/Creat Ratio 25.6 RATIO (10-20); Calcium,Total 9.2 mg/dL (8.5-10.1); Chloride 105 mmol/L (98-107); Creatinine, Serum 0.86 mg/dL (0.55-1.02); EST Glomerular Filtration Rate 69 mL/min (>60); Est Glom Filt Rate - Afr Amer 84 mL/min (>60); Globulin 3.6 g/dL (2.2-4.2); Glucose 105 mg/dL (74-106); Potassium 3.7 mmol/L (3.5-5.1); Protein, Total 6.7 g/dL (6.4-8.2); Sodium Level 140 mmol/L (136-145)
== END | disposition home or self-care (01) ==
LOC: LAB 07:54
PROVIDERS: Physician Assistant Medical; PCP Family Medicine; Referring Provider Internal Medicine Cardiovascular Disease; Visit Provider Internal Medicine Cardiovascular Disease
DX: I48.11 Longstanding persistent atrial fibrillation (principal); Z95.2 Presence of prosthetic heart valve; Z79.01 Long term (current) use of anticoagulants
CPT/HCPCS: 36415; 80053; 85027; 85610

== ENCOUNTER → 2022-07-10 | Outpatient (CLI) | payer MEDICARE, MEDICAID, SELFPAY ==
[2022-07-10 11:30] LABS: INR Fingerstick 3.6; Prothrombin Time Fingerstick 40.4 SEC (11.7-14.9)
== END | disposition home or self-care (01) ==
LOC: LAB 07:37
PROVIDERS: PCP Family Medicine; Referring Provider Internal Medicine Cardiovascular Disease; Visit Provider Internal Medicine Cardiovascular Disease
DX: I48.11 Longstanding persistent atrial fibrillation (principal); Z95.2 Presence of prosthetic heart valve; Z79.01 Long term (current) use of anticoagulants
CPT/HCPCS: 36416; 85610

== ENCOUNTER → 2022-07-17 | Outpatient (CLI) | payer MEDICARE, MEDICAID, SELFPAY ==
[2022-07-17 11:11] LABS: Prothrombin Time Fingerstick 33.9 SEC (11.7-14.9)
[2022-07-17 11:19] LABS: Mucous, Urine 0 SEEN /hpf (<or=2+)
[2022-07-17 11:36] LABS: Color, Urine Yellow (Yellow); Glucose, Dipstick Normal (Normal); Ketone-Dipstick Negative (Negative); Leukocyte Esterase-Dipstick 100 /ul (Negative); Nitrite-Dipstick Positive (Negative); Occult Blood-Urine 25 /ul (Negative); Protein-Dipstick 15 mg/dl (Negative); Specific Gravity, Urine 1.015 (1.002-1.030); Urine Bilirubin Dipstick Negative (Negative); Urine Clarity Sl. Cloudy (Clear); Urine Urobilinogen 4 mg/dl (Normal)
[2022-07-17 11:42] LABS: Bacteria 1+ /hpf (None Seen); Red Blood Cells-Urine 0-5 SEEN /hpf (0-5); Squamous Epithelial Cells - UA 0-5 SEEN /hpf (5-10); White Blood Cells 10-25 SEEN /hpf (0-5)
== END | disposition home or self-care (01) ==
LOC: LAB 08:44
PROVIDERS: Physician Assistant Medical; PCP Family Medicine; Referring Provider Internal Medicine Cardiovascular Disease; Visit Provider Internal Medicine Cardiovascular Disease
DX: E86.0 Dehydration (principal); I48.11 Longstanding persistent atrial fibrillation; R41.82 Altered mental status, unspecified; Z95.2 Presence of prosthetic heart valve; Z79.01 Long term (current) use of anticoagulants
CPT/HCPCS: 36416; 81001; 85610

== ENCOUNTER → 2022-07-24 | Outpatient (CLI) | payer MEDICARE, MEDICAID, SELFPAY ==
[2022-07-24 10:56] LABS: INR Fingerstick 4.3; Prothrombin Time Fingerstick 47.6 SEC (11.7-14.9)
[2022-07-24 11:25] LABS: Prothrombin Time (Protime)PT. 41.3 SECONDS (11.7-14.9)
[2022-07-24 11:43] LABS: International Normalized Ratio 4.3
== END | disposition home or self-care (01) ==
PROVIDERS: PCP Family Medicine; Referring Provider Internal Medicine Cardiovascular Disease; Visit Provider Internal Medicine Cardiovascular Disease
DX: I48.11 Longstanding persistent atrial fibrillation (principal); Z95.2 Presence of prosthetic heart valve; Z79.01 Long term (current) use of anticoagulants
CPT/HCPCS: 36416; 85610